=== PATIENT | male | born 1950 | race Caucasian/White ===

== ENCOUNTER 2017-02-27 08:19 | Observation (INO) | payer OTHER, MEDICARE ==
--- NOTE | ~2017-02-27 | CT16 ---
[facility] A Service of [facility] RADIOLOGY TEXT RESULTS PATIENT: TIFFANY BULLARD LOCATION: [facility] 559-01 : 50 UNIT #: [id number] AGE: [address]: Babita Rodriguez MD SEX: M ORDER DR: [id number] [facility] [address] [place], [place] [address] [id number] MR#: [id number] Acc #: [id number] NAME: TIFFANY BULLARD. : 1950 SEX: M STUDY DATE/TIME: 02/28/2017 20:35 UNIT: [facility] ROOM: [facility] STUDY DESCRIPTION: CT Angio Chest for PE Attending Physician: Babita Rodriguez M.D. Ordering Physician: Kg Fish M.D. Primary Care Physician: Babita Rodriguez M.D. MEDICAL IMAGING REPORT This report is preliminary unless electronic signature is present EXAM CT angiogram chest PE protocol dated 02/28/[address] angiogram chest PE protocol dated 07/24/2013. HISTORY Severe shortness of air since surgery on February 26, 2017 for carpal tunnel syndrome. It is improving today. FINDINGS CT angiogram of the chest was obtained with IV contrast in the axial plane followed by sagittal and coronal reformats. This CT examination was performed with one or more of the following radiation dose reduction techniques: automatic exposure control, adjustment of mA and/or kV according to patient size, and iterative reconstruction. Main, right, left pulmonary arteries and their segmental branches do not demonstrate any filling defects to suggest pulmonary embolism. No evidence of aortic aneurysm or dissection. Aortic root measures about 3.6 cm in the coronal reformats, lesser when compared to the prior study where aneurysmal dilatation was mentioned. It is probably related to differences in slice selection. No cardiomegaly or significant lymphadenopathy. There is a small hiatal hernia. Evidence of gastric banding surgery is noted. Degenerative changes are noted in the visualized thoracic spine with prominent osteophytes and facet changes. No patchy dense consolidation, pleural effusion or pneumothorax is seen. Minimal atelectatic changes are noted in the posterior right upper lobe. Imaged upper abdomen does not demonstrate any significant acute abnormality. IMPRESSION 1. No evidence of pulmonary embolism. 2. 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 [facility] A Service of [facility] RADIOLOGY TEXT RESULTS PATIENT: TIFFANY BULLARD LOCATION: [facility] 559-01 : 50 UNIT #: [id number] AGE: [address]: Babita Rodriguez MD SEX: M ORDER DR: correlate in the current study. Currently, it measures about 3.6 cm at the root. 3. Small hiatal hernia. 4. Minimal subsegmental atelectatic changes in the posterior segment of the right upper lobe. Dictated by... Tenzin Rubin M.D. THIS IS AN ELECTRONICALLY VERIFIED REPORT Tenzin Rubin M.D. at 03/07/2017 3:22 PM CPR/mjs TD: 03/01/2017 12:07 JOB #: [id number] MEDICAL IMAGING REPORT Page 1 of 1 COPY
--- NOTE | ~2017-02-27 | CO ---
Unit #: [id number] #: [id number] Patient: TIFFANY BULLARD [id number] [address] [place], [place] [address] [id number] I MR#: [id number] NAME: TIFFANY BULLARD. ROOM: 559 Age: 66 Sex: M Admission Date: 02/27/2017 : 1950 Attending Physician: Babita Rodriguez M.D. Primary Care Physician: Babita Rodriguez M.D. Consultation Date: 02/27/2017 CONSULTATION REPORT REASON FOR CONSULT Shortness of breath. HISTORY OF PRESENT ILLNESS This is a 66-year-old male with past medical history significant for morbid obesity, hypertension, COPD, arthritis, afib, who presented to the emergency room with sudden onset of shortness of breath and chest tightness. Patient stated that he was at his baseline until yesterday when he had carpal tunnel syndrome surgery and they used only local anesthesia. Postop patient suddenly developed progressive shortness of breath and some chest tightness. He states that his primary care doctor thought he had some wheezing yesterday and she gave him IV steroids with bronchodilator. Currently patient is with no wheezing but he is still dyspneic. However, he is feeling better after albuterol treatment. His D-dimer was noted in the ER to be elevated above 1000. Patient denied any nausea, vomiting or diarrhea and no fever, chills or night sweats. PAST MEDICAL HISTORY 1. Hypertension. 2. COPD. 3. Morbid obesity. 4. Arthritis. 5. Back pain. 6. Afib. PAST SURGICAL HISTORY 1. Bilateral knee replacement. 2. Carpal tunnel repair. 3. Ankle tendon repair. HOME MEDICATION 1. Losartan and hydrochlorothiazide. 2. Singulair. 3. Allopurinol. 4. Symbicort. 5. ProAir. 6. Sotalol. ALLERGIES Unit #: [id number] #: [id number] Patient: TIFFANY BULLARD No known drug allergy. FAMILY HISTORY Hypertension. REVIEW OF SYSTEMS A 12-point review of systems was obtained and was negative except for what was mentioned in the HPI. PHYSICAL EXAMINATION GENERAL: The patient is in no acute distress. VITAL SIGNS: Blood pressure 151/62. Respiratory rate 22. O2 saturation 98 on 2 L nasal cannula. HEENT: Normocephalic and atraumatic. PERRLA. EOMI. NECK: Supple. No JVD. No lymphadenopathy. CHEST: Decreased breath sounds bilaterally. No wheezing or crackles. HEART: S1, S2. No murmur, gallops or rubs. ABDOMEN: Soft, nontender. Bowel sound is positive. No hepatosplenomegaly. 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 SKIN: No rashes. HYDROLOGY TEACHER: Awake, alert, oriented x3. No focal motor/sensory deficits. DIAGNOSTIC STUDIES LABORATORY: Creatinine 1.3, sodium 134, white blood count 11.5, hemoglobin 11.4. IMAGING: Chest x-ray with no acute infiltrate. ASSESSMENT 1. Dyspnea. 2. Rule out pulmonary embolus. 3. Chronic obstructive pulmonary disease. 4. Morbid obesity. 5. Obstructive sleep apnea. PLAN 1. Will continue patient on bronchodilator. 2. No need for intravenous steroids. 3. Given his high D-dimer and his relatively immobile condition patient will need a CT angiogram to rule out a pulmonary embolus. 4. Gentle IV hydration. 5. Pain management. Dictated by... Jitendra Wilson M.D. EA/ned TD: 02/27/2017 22:13 JOB #: [id number] Unit #: [id number] #: [id number] Patient: TIFFANY BULLARD CONSULTATION REPORT Page 1 of 1 X JITENDRA WALSH MD CONSULTATION REPORT
--- NOTE | ~2017-02-27 | EKG ---
PATIENT: TIFFANY BULLARD UNIT #: [id number] Ventricular Rate: 70 BPM Atrial Rate: 70 BPM P-R Interval: 228 ms QRS Duration: 90 ms Q-T Interval: 406 ms QTC Calculation(Bezet): 438 ms P [place]: 38 degrees Calculated R [place]: 28 degrees Calculated T [place]: 51 degrees Diagnosis Line: Sinus rhythm with 1st degree A-V block Diagnosis Line: Otherwise normal ECG Diagnosis Line: When compared with ECG of 27-SEP-2014 06:22, Diagnosis Line: Vent. rate has increased BY 26 BPM Diagnosis Line: Confirmed by KARISHMA LEES MD ([id number]) on 02/28/2017 Diagnosis Line: 8:18:33 PM INTERPRETING MD: YOANA YANG
--- NOTE | ~2017-02-27 | US85 ---
[facility] A Service [facility] RADIOLOGY TEXT RESULTS PATIENT: TIFFANY BULLARD LOCATION: [facility] : 50 UNIT #: [id number] AGE: [address]: Babita Rodriguez MD SEX: M ORDER DR: [id number] [facility]. [place], [place] [address] [id number] I MR#: [id number] Acc #: [id number] NAME: TIFFANY BULLARD. : 1950 SEX: M STUDY DATE/TIME: 02/27/2017 17:18 UNIT: [facility] ROOM: [facility] STUDY DESCRIPTION: US LE Veins Unilat or Ltd Stdy Attending Physician: Babita Rodriguez M.D. Ordering Physician: Babita Rodriguez M.D. Primary Care Physician: Babita Rodriguez M.D. MEDICAL IMAGING REPORT This report is preliminary unless electronic signature is present EXAM Right lower extremity DVT study dated 02/27/2017 COMPARISON Left lower extremity DVT study dated 07/20/2013. No prior right lower extremity DVT studies. HISTORY Right lower extremity pain with shortness of air for 2 years. TECHNIQUE Structural sadler-scale analysis, color Doppler flow analysis and waveform analysis with compression and augmentation of the right lower extremity veins were performed as per the protocol. Venous ultrasound examination of the right lower extremity was performed using grayscale, spectral Doppler and color flow Doppler imaging. FINDINGS The examination is negative. There is no evidence of right lower extremity deep venous thrombus from the groin to the lower calf. Visualized greater saphenous vein is also patent. IMPRESSION Negative examination. No evidence of right lower extremity deep venous thrombosis. Dictated by... [facility] A Service [facility] RADIOLOGY TEXT RESULTS PATIENT: TIFFANY BULLARD LOCATION: [facility] : 50 UNIT #: [id number] AGE: [address]: Babita Rodriguez MD SEX: M ORDER DR: Chithra Jeny Scottie, M.D. THIS IS AN ELECTRONICALLY VERIFIED REPORT Tenzin Rubin M.D. at 02/28/2017 2:24 PM CPR/ljd TD: 02/27/2017 21:28 JOB #: [id number] MEDICAL IMAGING REPORT Page 1 of 1 COPY
--- NOTE | ~2017-02-27 | EKG ---
PATIENT: TIFFANY BULLARD UNIT #: [id number] Ventricular Rate: 71 BPM Atrial Rate: 71 BPM P-R Interval: 218 ms QRS Duration: 90 ms Q-T Interval: 402 ms QTC Calculation(Bezet): 436 ms P Ash[place]: 18 degrees Calculated R [place]: 5 degrees Calculated T [place]: 22 degrees Diagnosis Line: Poor data quality, interpretation may be Diagnosis Line: adversely affected Diagnosis Line: Sinus rhythm with 1st degree A-V block with Diagnosis Line: Premature atrial complexes Diagnosis Line: Otherwise normal ECG Diagnosis Line: When compared with ECG of 27-FEB-2017 11:24, Diagnosis Line: (unconfirmed) Diagnosis Line: Premature atrial complexes are now Present Diagnosis Line: Confirmed by KARISHMA LEES MD ([id number]) on 02/28/2017 Diagnosis Line: 8:22:51 PM INTERPRETING MD: YOANA YANG
--- NOTE | ~2017-02-27 | BMI ---
[facility] Nutrition Therapy DATE: 02/28/17 Patient: TIFFANY BULLARD Physician: SMITA Address: [address] Room/Bed: [address] [place] [address], Zip: [place] [address] Admit Date: 02/27/17 Date of : [birth year] Height: 5 7 Weight: 350 158.8 HIGH BMI NOTE: DX: 66 Y.O. MALE ADMITTED FOR COPD ANTHROPOMETRICS: 6'2", WT: 350# (159 KG), BMI: 44.9 DIET: HEALTHY HEART DIET RECOMMENDATIONS: 1. CONTINUE CURRENT DIET ORDER ABOVE TO PROMOTE GRADUAL WEIGHT LOSS TOWARDS HEALTHY BMI (19.0-25.0) OR +/-10%IBW RD WILL F/U PER PROTOCOL Respectfully, KIESHA MAGAÑA MS, RD, LD Food and Nutritional Services [facility] cc: client file
--- NOTE | ~2017-02-27 | CO ---
Unit #: [id number] #: [id number] Patient: TIFFANY BULLARD [id number] [address] [place], [place] [address] [id number] I MR#: [id number] NAME: TIFFANY BULLARD. ROOM: 559 Age: 66 Sex: M Admission Date: 02/27/2017 : 1950 Attending Physician: Babita Rodriguez M.D. Primary Care Physician: Babita Rodriguez M.D. Consultation Date: 02/27/2017 CONSULTATION REPORT REASON FOR CONSULTATION Dyspnea. HISTORY OF PRESENT ILLNESS This is a 66-year-old white male, who has been seen by our group in the past. He has a history of sick sinus syndrome, paroxysmal atrial fibrillation and he is not on anticoagulation. He had a Lexiscan Cardiolite stress test in 2013 that was normal. His last echocardiogram shows normal left ventricular systolic function. The patient presents with a complaint of shortness of breath. On the day prior to his admission, he had carpal tunnel release. The following day, he had shortness of breath that mostly occurred on exertion, but also occurred at rest. He reported no cough, paroxysmal nocturnal dyspnea or orthopnea. He denies leg edema. His BNP was normal at 122. Chest x-ray only showed mild vascular congestion. He does report weight gain. He has obstructive sleep apnea and uses his CPAP, but his states despite the use of CPAP, he was still dyspneic. He denies any symptoms of angina. No palpitations or dizziness. PAST MEDICAL HISTORY 1. 2D echocardiogram on 10/21/2013 showed an ejection fraction equal to 50% with mild concentric left ventricular hypertrophy. Valves were not well visualized. 2. Lexiscan Cardiolite stress test, 06/08/2014, showed no ischemia. Ejection fraction was 61%. 3. Paroxysmal atrial fibrillation, on anticoagulation with CHADS2-Vasc score of 1. Continued on aspirin. 4. Hypertension. 5. Sick sinus syndrome with junctional and bradycardia in the past. 6. Obstructive sleep apnea, wears CPAP. 7. Osteoarthritis. 8. Morbid obesity. 9. Nonsmoker. PAST SURGICAL HISTORY 1. Left tydga-wdt-iuhq amputation. 2. Lap-band surgery. 3. Spinal surgery. 4. Toe amputation. 5. Repair of the right Achilles tendon. SOCIAL HISTORY Unit #: [id number] #: [id number] Patient: TIFFANY BULLARD The patient is and not employed. He ambulates infrequently. He is mostly in a wheelchair. He has no history of nicotine, alcohol, or illicit drug use. FAMILY HISTORY Coronary artery disease in his parents. He is the only child. ALLERGIES No known drug allergies. HOME MEDICATIONS Cozaar 100 mg daily, gabapentin 300 mg b.i.d., diltiazem 120 mg daily, Centrum 1 tablet b.i.d., vitamin D 400 units daily, aspirin 81 mg daily, Symbicort 160/4.5 mcg 2 puffs b.i.d., Spiriva 1 inhalation daily, Relafen 750 mg b.i.d., Combivent mini nebs b.i.d., allopurinol 100 mg daily, Fosamax 5 mg daily, hydralazine 25 mg daily, Singulair 10 mg daily, amiodarone 200 mg daily. REVIEW OF SYSTEMS CONSTITUTIONAL: Negative for fever or chills. Reports weight gain of unknown amount. HEENT: No headache, hearing or vision changes or difficulty with swallowing. No dizziness. CARDIOVASCULAR: He has no symptoms of angina. Denies palpitations. No paroxysmal nocturnal dyspnea or orthopnea. Denies syncope or near syncope. RESPIRATORY: Negative for cough or hemoptysis. Reports dyspnea at rest, it is worse on exertion. GASTROINTESTINAL: No abdominal pain, nausea, or vomiting. No constipation. No melena. Denies any increase in his abdominal girth. EXTREMITIES: Negative for right lower extremity edema. PHYSICAL EXAMINATION VITAL SIGNS: Blood pressure is 185/90, heart rate 68, temperature 97.8, weight is 342 pounds. Oxygen saturation 96% on 2 L nasal cannula. GENERAL: This is an obese, 66-year-old white male, who is in no acute distress. NEUROLOGIC: He is awake, alert, and oriented. There are no focal weaknesses. NECK: Trachea is midline. No thyromegaly or lymphadenopathy. No jugular venous distention. HEART: S1 and S2. Heart sounds are normal. No murmurs, rubs, or clicks. Regular rate and rhythm. LUNGS: Diminished breath sounds in both lungs without rales, rhonchi, or wheeze. ABDOMEN: Soft and obese with bowel sounds are present. No obvious organomegaly. EXTREMITIES: Right lower extremity without leg edema. SKIN: Warm and dry. DIAGNOSTIC STUDIES LABORATORY RESULTS: Glucose 86, BUN 22, creatinine 1.3. Sodium 133, potassium 4.3, CK total 368, MB 6.1, MB index 1.7. Troponin less than 0.02. BNP 122. IMAGING STUDIES: Chest x-ray shows mild vascular congestion and cardiomegaly. CARDIOVASCULAR STUDIES: EKG shows normal sinus rhythm with first-degree AV block, otherwise normal. Unit #: [id number] #: [id number] Patient: TIFFANY BULLARD IMPRESSION 1. Dyspnea secondary to morbid obesity causing restrictive lung disease. 2. Paroxysmal atrial fibrillation, in normal sinus rhythm. 3. Morbid obesity despite lap band surgery for weight reduction. 4. Obstructive sleep apnea. 5. Hypertension. 6. Sick sinus syndrome. 7. Preserved left ventricular systolic function of 50%. PLAN 1. Cardiology was consulted for dyspnea. There is no suggestion of ischemic heart disease. His troponin is negative with no acute ischemic changes. 2. No evidence of acute heart failure on examination. 3. The patient is advised to see bariatric surgery again, so they can tighten his lap band to help him with weight loss. 4. Pulmonary hypertension secondary to obstructive sleep apnea, cannot be ruled out. 5. Continue the patient on aspirin for paroxysmal atrial fibrillation. He has a CHADS2-Vasc score of 1. He is on amiodarone and diltiazem for maintenance of normal sinus rhythm. 6. We will follow the patient with you. Thank you for allowing us to assist with this patient's care. Dictated by... Bishop Hamilton A.P.R.N. for Al Norman/colleen TD: 03/05/2017 03:46 JOB #: [id number] CONSULTATION REPORT Page 1 of 1 X Bishop Hamilton APRN CONSULTATION REPORT
--- NOTE | ~2017-02-27 | CR63 ---
[facility] A Service of [facility] RADIOLOGY TEXT RESULTS PATIENT: TIFFANY BULLARD LOCATION: [facility] [address] : 50 UNIT #: [id number] AGE: [address]: Babita Rodriguez MD SEX: M ORDER DR: [id number] [place], [place] [address] [id number] I MR#: [id number] Acc #: [id number] NAME: TIFFANY BULLARD. : 1950 SEX: M STUDY DATE/TIME: 02/27/2017 10:37 UNIT: C2A ROOM: 219 STUDY DESCRIPTION: CR Chest 2 View Attending Physician: Babita Rodriguez M.D. Ordering Physician: Babita Rodriguez M.D. Primary Care Physician: Babita Rodriguez M.D. MEDICAL IMAGING REPORT This report is preliminary unless electronic signature is present EXAM 2 views chest, 02/27/2017. HISTORY COPD. Short of air 1 day. TECHNIQUE AP radiograph of the chest is presented. COMPARISON 09/26/2014. FINDINGS Study is significantly limited, secondary to AP lordotic technique and large patient body habitus. Stable cardiac enlargement, given AP technique. Lung volumes moderate. Pulmonary vasculature appears mildly prominent, suggesting mild vascular congestion. There is no clear indication of suresh pulmonary edema. No pneumonia, pleural effusion or pneumothorax. No suspicious nodule. Dictated by... Merlin Hathaway M.D. THIS IS AN ELECTRONICALLY VERIFIED REPORT Merlin Hathaway M.D. at 02/28/2017 6:42 PM JEAN CARLOS/emir TD: 02/27/2017 16:41 JOB #: [id number] MEDICAL IMAGING REPORT [facility] A Service of [facility] RADIOLOGY TEXT RESULTS PATIENT: TIFFANY BULLARD LOCATION: [facility] : 50 UNIT #: [id number] AGE: [address]: Babita Rodriguez MD SEX: M ORDER DR: Page 1 of 1 COPY
--- NOTE | ~2017-02-27 | DS ---
Unit #: [id number] #: [id number] Patient: TIFFANY BULLARD [id number] [address] [address] [id number] I MR#: [id number] NAME: TIFFANY BULLARD. ROOM: 559 Age: Sex: M Admission Date: 02/27/2017 : 1950 Discharge Date: Attending Physician: Babita Rodriguez M.D. Primary Care Physician: Babita Rodriguez M.D. DISCHARGE SUMMARY SHORT STAY SUMMARY ADMISSION DIAGNOSES 1. Shortness of air and dyspnea. 2. History of paroxysmal atrial fibrillation. 3. Chronic obstructive pulmonary disease. 4. Status post recent carpal tunnel release. 5. Obesity. 6. Status post left cnaun-jao-wkhy amputation with questionable peripheral vascular disease. 7. Obstructive sleep apnea. HISTORY OF PRESENT ILLNESS Mr. Bullard is a 66-year-old gentleman, patient of Dr. Rodriguez, who apparently had carpal tunnel release on the left yesterday and was seen by primary care physician, Dr. Rodriguez, secondary to increasing shortness of air and dyspnea. Patient denies any chest pain and denies any headache, dizziness, fever, chills, nausea, vomiting, diarrhea, or abdominal pain. He states that he just gets short of air and gets more dyspneic with exertion. He does have a history of COPD and uses bronchodilators at home. However, it was with minimal help. Patient was directly admitted per Dr. Rodriguez. So a 12-point review of systems on this patient basically is negative except as above in the History of Present Illness. PAST MEDICAL HISTORY 1. Hypertension. 2. Chronic obstructive pulmonary disease. 3. Atrial fibrillation. 4. Morbid obesity. 5. Obstructive sleep apnea. 6. Peripheral neuropathy. 7. Gout. PAST SURGICAL HISTORY 1. Bilateral total knee replacement. 2. Lumbar spine surgery. 3. Bariatric surgery. 4. Left fifth metatarsal head ostectomy. 5. Repair of right Achilles tendon rupture. 6. Left gwecp-syj-ekih amputation. 7. Recent left carpal tunnel release. HOME MEDICATIONS 1. Cozaar. Unit #: [id number] #: [id number] Patient: TIFFANY BULLARD 2. Gabapentin. 3. Diltiazem. 4. Multivitamin. 5. Vitamin D. 6. Aspirin. 7. Symbicort. 8. Spiriva. 9. Relafen. 10. DuoNebs. 11. Allopurinol. 12. Fosamax. 13. Hydrochlorothiazide. 14. Singulair. 15. Amiodarone. ALLERGIES No known drug allergies. SOCIAL HISTORY No history of tobacco, alcohol, or illicit drugs. FAMILY HISTORY Unremarkable. PHYSICAL EXAMINATION GENERAL: Patient is a 66-year-old, obese, gentleman in no acute distress. VITAL SIGNS: Blood pressure 149/80, heart rate 74, respirations 18, and temperature 98.2. HEENT: Head is atraumatic. Pupils equal, round, and reactive to light and accommodation. Extraocular muscles intact. Oropharynx clear. NECK: Supple. No mass, no JVD, and no bruits. CHEST: Actually without any significant wheezing, rhonchi, or crackles. Mildly diminished in the bases. CARDIOVASCULAR: S1 and S2. No murmurs. ABDOMEN: Obese, soft, nontender, and nondistended. Bowel sounds present. LOWER EXTREMITIES: Left BKA. Unremarkable right lower extremity with no pitting edema. NEUROLOGIC: Alert and oriented x3. No focal neurologic deficits. DIAGNOSTIC STUDIES LABORATORY: Chemistry significant for mildly decreased GFR at 56 with BUN and creatinine 22 and 1.3 and blood glucose 118. White count 11.5 and hemoglobin and hematocrit 11.4 and 35.8. ASSESSMENT AND PLAN 1. Shortness of air and dyspnea with elevated D-dimer at 1000. A ventilation/perfusion scan is pending. Pulmonary consult is ongoing. Follow up on the V/Q. Will get a chest x-ray. 2. History of paroxysmal atrial fibrillation, not on chronic anticoagulation for unknown reasons. Will ask Dr. Soliz who is her school bus dispatcher to follow. Get a 2D echocardiogram. 3. History of chronic obstructive pulmonary disease. Continue bronchodilators. 4. Status post recent carpal tunnel release surgery. Continue supportive care and symptomatic management. 5. Obesity. 6. 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 7. Obstructive sleep apnea. 8. Gastrointestinal and deep venous thrombosis prophylaxis. Continue Lovenox and put on Pepcid. Dictated by Kg Fish M.D. OC/am TD: 02/27/2017 20:57 JOB #: [id number] ADDENDUM The patient was evaluated by Pulmonary and Cardiology. So far all the workup is negative. Unfortunately, the patient was not able to tolerate the VQ scan. Chemistry panel is looking better today. Hopefully we will get the CT angio of the chest done. In case the CT angio of the chest rules out PE, the patient will be discharged home. In case of discharge, patient is to follow up with the primary care physician, Dr. Rodriguez, in the morning to recheck the chemistry panel to make sure his kidney function stays stable since he is about to have a contrast study. DISCHARGE MEDICATIONS The same as the home medications except there is a prescription for [employer] 5/325 one tablet p.o. q.4-6 h. p.r.n. for pain, quantity of #24. There is a tapering prednisone 40 mg p.o. daily times 2 and then 20 mg p.o. daily times 3, so a total of 5 days. Please again combine this addendum with the History and Physical and transform it to a Short Stay Summary since the patient was admitted on 02/27/2017 and being discharged on 02/28/2017. In case CT angio is positive, patient will be staying in the hospital for initiation of active anticoagulation. In that case, further addendum will be made to this summary. Dictated by... Kg Fish M.D. OC/cs TD: 02/28/2017 21:31 JOB #: [id number] Unit #: [id number] #: [id number] Patient: TIFFANY BULLARD DISCHARGE SUMMARY Page 1 of 1 X Kg Fish MD DISCHARGE SUMMARY
--- NOTE | ~2017-02-27 | HP ---
Unit #: [id number] #: [id number] Patient: TIFFANY BULLARD [id number] [address] [address] [id number] MR#: [id number] NAME: TIFFANY BULLARD. ROOM: 559 Age: 66 Sex: M Admission Date: 02/27/2017 : 1950 Attending Physician: Babita Rodriguez M.D. Primary Care Physician: Babita Rodriguez M.D. HISTORY AND PHYSICAL ADMISSION DIAGNOSES 1. Shortness of air and dyspnea. 2. History of paroxysmal atrial fibrillation. 3. Chronic obstructive pulmonary disease. 4. Status post recent carpal tunnel release. 5. Obesity. 6. Status post left dbypt-onr-xgjk amputation with questionable peripheral vascular disease. 7. Obstructive sleep apnea. HISTORY OF PRESENT ILLNESS Mr. Bullard is a 66-year-old gentleman, patient of Dr. Rodriguez, who apparently had carpal tunnel release on the left yesterday and was seen by primary care physician, Dr. Rodriguez, secondary to increasing shortness of air and dyspnea. Patient denies any chest pain and denies any headache, dizziness, fever, chills, nausea, vomiting, diarrhea, or abdominal pain. He states that he just gets short of air and gets more dyspneic with exertion. He does have a history of COPD and uses bronchodilators at home. However, it was with minimal help. Patient was directly admitted per Dr. Rodriguez. So a 12-point review of systems on this patient basically is negative except as above in the History of Present Illness. PAST MEDICAL HISTORY 1. Hypertension. 2. Chronic obstructive pulmonary disease. 3. Atrial fibrillation. 4. Morbid obesity. 5. Obstructive sleep apnea. 6. Peripheral neuropathy. 7. Gout. PAST SURGICAL HISTORY 1. Bilateral total knee replacement. 2. Lumbar spine surgery. 3. Bariatric surgery. 4. Left fifth metatarsal head ostectomy. 5. Repair of right Achilles tendon rupture. 6. Left cuumg-cqc-orhc amputation. 7. Recent left carpal tunnel release. HOME MEDICATIONS 1. Cozaar. 2. Gabapentin. 3. Diltiazem. Unit #: [id number] #: [id number] Patient: TIFFANY BULLARD 4. Multivitamin. 5. Vitamin D. 6. Aspirin. 7. Symbicort. 8. Spiriva. 9. Relafen. 10. DuoNebs. 11. Allopurinol. 12. Fosamax. 13. Hydrochlorothiazide. 14. Singulair. 15. Amiodarone. ALLERGIES No known drug allergies. SOCIAL HISTORY No history of tobacco, alcohol, or illicit drugs. FAMILY HISTORY Unremarkable. PHYSICAL EXAMINATION GENERAL: Patient is a 66-year-old, obese, gentleman in no acute distress. VITAL SIGNS: Blood pressure 149/80, heart rate 74, respirations 18, and temperature 98.2. HEENT: Head is atraumatic. Pupils equal, round, and reactive to light and accommodation. Extraocular muscles intact. Oropharynx clear. NECK: Supple. No mass, no JVD, and no bruits. CHEST: Actually without any significant wheezing, rhonchi, or crackles. Mildly diminished in the bases. CARDIOVASCULAR: S1 and S2. No murmurs. ABDOMEN: Obese, soft, nontender, and nondistended. Bowel sounds present. LOWER EXTREMITIES: Left BKA. Unremarkable right lower extremity with no pitting edema. NEUROLOGIC: Alert and oriented x3. No focal neurologic deficits. DIAGNOSTIC STUDIES LABORATORY: Chemistry significant for mildly decreased GFR at 56 with BUN and creatinine 22 and 1.3 and blood glucose 118. White count 11.5 and hemoglobin and hematocrit 11.4 and 35.8. ASSESSMENT AND PLAN 1. Shortness of air and dyspnea with elevated D-dimer at 1000. A ventilation/perfusion scan is pending. Pulmonary consult is ongoing. Follow up on the V/Q. Will get a chest x-ray. 2. History of paroxysmal atrial fibrillation, not on chronic anticoagulation for unknown reasons. Will ask Dr. Soliz who is her sql programmer to follow. Get a 2D echocardiogram. 3. History of chronic obstructive pulmonary disease. Continue bronchodilators. 4. Status post recent carpal tunnel release surgery. Continue supportive care and symptomatic management. 5. Obesity. 6. Status post left cdbrg-jps-cdde amputation secondary to infected wound, question peripheral vascular disease. 7. Obstructive sleep apnea. Unit #: [id number] #: [id number] Patient: TIFFANY BULLARD 8. Gastrointestinal and deep venous thrombosis prophylaxis. Continue Lovenox and put on Pepcid. 1. Dictated by Al Bennett/am TD: 02/27/2017 20:57 JOB #: [id number] HISTORY AND PHYSICAL Page 1 of 1 X Kg Fish MD X HISTORY AND PHYSICAL
[~2017-02-27 08:19] MED LIST: ALENDRONATE SODI5 MG PO; ALEVE220 M1 PO; AMIODARONE HCL100 MG PO; AMIODARONE PO; ASPIRIN81 M2 PO; BACTRIM DS TABL1 TA1 PO; CENTRUM PO; COZAAR100 MG PO; DILTIAZEM HCL120 MG PO; DOXYCYCLINE HY100 M3 PO; FOSAMAX5 M1 DOB; GABAPENTIN300 MG PO; HYDROCHLOROTHIA25 MG PO; IBUPROFEN800 MG PO; KEFLEX PO; LORTAB 7.5-5001 TAB PO; LOSARTAN-HCTZ1 EACH PO; MIRALAX17 G2 PO; MONTELUKAST SOD10 MG PO; NAPROXEN; NORCO 10-325 TA1 TAB PO; PROAIR HFA8.5 GM IH; PROAIR HFA8.5 GM INH; RELAFEN PO; SINGULAIR PO; SOTALOL120 MG PO; SYMBICORT INH; VITAMIN D400 UNI1 PO; ZYLOPRIM100 MG PO
[2017-02-27] MEDS ORDERED: SPIRIVA18 MCG (11:43)
[2017-02-27] MEDS ORDERED: NABUMETONE PO (11:44)
[2017-02-27] MEDS ORDERED: IPRATR-ALBUTEROL3 ML INH (11:44)
[2017-02-27 12:02] LABS: HEMATOCRIT 35.8 % (38.0-50.0); HEMOGLOBIN 11.4 gm/dL (13.0-16.0); MEAN CELL VOLUME 91.2 FL (83-96); MEAN CORPUSCULAR HEMOGLOBIN 28.9 PG (28-34); MEAN CORPUSCULAR HGB CONC 31.7 g/dL (30-36); MEAN PLATELET VOLUME 8.5 FL (6.5-11.5); RED BLOOD COUNT 3.93 X10e (3.90-5.60); RED CELL DISTRIBUTION WIDTH 15.6 % (11.0-15.5); WHITE BLOOD COUNT 11.5 X10e3 (4.0-10.5)
[2017-02-27 12:33] LABS: BUN/CREATININE RATIO 16.92; CALCIUM SERUM 8.6 mg/dL (8.4-10.2); CREATININE SERUM 1.3 mg/dL (0.6-1.4); GLOM FILT RATE Estimated 56.9 mL/min (>60); POTASSIUM 4.3 mmol/L (3.5-5.1)
[2017-02-27 12:51] LABS: %MB 1.7 % (0.0-4.0); MB 6.1 ng/ml
[2017-02-27 19:52] LABS: %MB 1.7 % (0.0-4.0); MB 9.7 ng/ml
[2017-02-28 01:30] LABS: %MB 1.8 % (0.0-4.0); MB 15.8 ng/ml
[2017-02-28 05:57] LABS: HEMATOCRIT 36.4 % (38.0-50.0); HEMOGLOBIN 11.4 gm/dL (13.0-16.0); MEAN CELL VOLUME 92.4 FL (83-96); MEAN CORPUSCULAR HEMOGLOBIN 28.8 PG (28-34); MEAN CORPUSCULAR HGB CONC 31.2 g/dL (30-36); MEAN PLATELET VOLUME 8.7 FL (6.5-11.5); RED BLOOD COUNT 3.94 X10e (3.90-5.60); RED CELL DISTRIBUTION WIDTH 16.3 % (11.0-15.5); WHITE BLOOD COUNT 12.6 X10e3 (4.0-10.5)
[2017-02-28 06:52] LABS: BUN/CREATININE RATIO 20.83; CALCIUM SERUM 8.4 mg/dL (8.4-10.2); CREATININE SERUM 1.2 mg/dL (0.6-1.4); GLOM FILT RATE Estimated 62.7 mL/min (>60); POTASSIUM 4.1 mmol/L (3.5-5.1)
[2017-02-28 14:05] LABS: CHOLESTEROL 181 mg/dL (0-200); HDL CHOLESTEROL 61 mg/dL (29-75); LDL CHOLESTEROL 108 mg/dL (-130); LDL/HDL RATIO 2 RATIO (0-4); TRIGLYCERIDES 60 mg/dL (10-160)
[2017-03-01 08:08] LABS: BUN/CREATININE RATIO 17.69; CALCIUM SERUM 8.8 mg/dL (8.4-10.2); CREATININE SERUM 1.3 mg/dL (0.6-1.4); GLOM FILT RATE Estimated 56.9 mL/min (>60); POTASSIUM 4.2 mmol/L (3.5-5.1)
[2017-03-01] MEDS ORDERED: LORTAB 5-325 M1 EACH PO (15:10)
[2017-03-01] MEDS ORDERED: DELTASONE20 MG PO (15:11)
== END 2017-03-01 17:24 | disposition home or self-care (01) | DRG 204 ==
LOC: C2A 08:19 → C5B 08:19 → C2A 09:03 → C5B 17:38
PROVIDERS: Hospitalist; Nurse Practitioner; Physician Assistant Medical
DX: R06.02 Shortness of breath (principal); J44.1 Chronic obstructive pulmonary disease with (acute) exacerbation; I36.1 Nonrheumatic tricuspid (valve) insufficiency; I51.9 Heart disease, unspecified; I51.7 Cardiomegaly; J98.4 Other disorders of lung; I71.9 Aortic aneurysm of unspecified site, without rupture; K44.9 Diaphragmatic hernia without obstruction or gangrene; J98.11 Atelectasis; G47.33 Obstructive sleep apnea (adult) (pediatric); I10 Essential (primary) hypertension; I48.91 Unspecified atrial fibrillation; M19.90 Unspecified osteoarthritis, unspecified site; E66.01 Morbid (severe) obesity due to excess calories; Z79.899 Other long term (current) drug therapy; Z79.82 Long term (current) use of aspirin; Z82.49 Family history of ischemic heart disease and other diseases of the circulatory system; Z96.653 Presence of artificial knee joint, bilateral; Z98.890 Other specified postprocedural states; Z89.512 Acquired absence of left leg below knee
CPT/HCPCS: 71020; 71275; 80048; 80061; 82308; 82550; 82553; 83036; 83880; 84484; 85027; 85379; 93005; 93306; 93971; 94640; 94760; 96372; 96374; 96375; G0378; J1650; J2930; Q9957; Q9967